=== PATIENT | female | born 1960 | race African-American/Black ===

== ENCOUNTER 2019-12-26 03:55 | Emergency (ER) | payer BC, MEDICAID ==
[~2019-12-26] VITALS: Ht 157.5 cm; Wt 122.5 kg
--- NOTE | 2019-12-26 04:03 | NUR ---
ED Nurse Note: pt brought in by ambulance from home c/o abdominal pain for several hours after eating dinner late and taking her evening medications. PT denies N/V/D, pt has been seen recently for similar symptoms. Pt is A&OX4, VSS, pt placed on sales data analyst, ERMD at bedside
--- NOTE | 2019-12-26 04:06 | Emergency Room Report ---
History of Present Illness General Chief Complaint: Abdominal Pain Source: Patient Present Illness HPI This is a 59-year-old female with a history of high blood pressure, diabetes and BMI of 49. She presents with 2 complaint of abdominal pain. Pain is epigastric area and radiating to her right upper quadrant into her back. Ongoing for the last 4 to 5 hours. Pain is sharp in nature. 9 out of 10. Has nausea and vomiting but no diarrhea. About a week and a half ago she was at [facility] diagnosed with kidney stone. She denies any hematuria. Nothing made it better. Palpation made it worse. 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 Patient History Past Medical History: see triage record, old chart reviewed, DM, HTN Past Surgical History: none Pertinent Family History: none Social History: Denies: smoking Now: No Immunizations: other Reviewed Nursing Documentation: PMH: Agreed; PSxH: Agreed Nursing Documentation-PMH Hx Hypertension: Yes Hx Diabetes: Yes Review of Systems Eye: Denies: eye pain, blurred vision ENT: Denies: ear pain, nose congestion, throat swelling Respiratory: Denies: cough, shortness of breath Cardiovascular: Denies: chest pain, palpitations Gastrointestinal: Reports: abdominal pain, nausea, vomiting; Denies: diarrhea Musculoskeletal: Denies: back pain, joint pain Skin: Denies: rash Neurological: Denies: headache, numbness Endocrine: Denies: increased thirst, increased urine Hematologic/Lymphatic: Denies: easy bruising All Other Systems: negative except mentioned in HPI Physical Exam Vital Signs Date Time Temp Pulse Resp B/P (MAP) Pulse Ox O2 Delivery O2 Flow Rate FiO2 12/26/19 03:51 98.6 86 16 168/81 (110) 98 Room Air Vitals with high blood pressure Sp02 EP Interpretation: reviewed, normal General Appearance: well appearing, no apparent distress, alert Head: normocephalic, atraumatic Eyes: bilateral eye PERRL, bilateral eye EOMI ENT: hearing grossly normal, normal pharynx Neck: full range of motion, supple, no meningismus Respiratory: chest non-tender, lungs clear, normal breath sounds Cardiovascular #1: regular rate, rhythm, no murmur Gastrointestinal: normal bowel sounds, no mass, no organomegaly, no bruit, non- distended, tenderness - Epigastric and right upper quadrant Musculoskeletal: back normal, normal range of motion, gait/station normal Psychiatric: mood/affect normal Medical Decision Making Diagnostic Impression: Primary Impression: Pancreatitis, acute Qualified Codes: K85.90 - Acute pancreatitis without necrosis or infection, unspecified Additional Impression: Abdominal pain Qualified Codes: R10.13 - Epigastric pain ER Course Patient presents with epigastric pain. She has a history of gastroparesis from diabetes. Lipase is elevated slightly but CT scans unremarkable. She has normal gallbladder. She has a lobulated soft tissue nodule in the right breast. She said this been ongoing for years and she get yearly mammogram to monitor it. CT/MRI/US Diagnostic Results CT/MRI/US Diagnostic Results : Imaging Test Ordered: CT abdomen pelvis Impression Read by radiologist. No acute findings in the abdomen or pelvis. Lobulated soft tissue nodule in the right breast. Last Vital Signs Date Time Temp Pulse Resp B/P (MAP) Pulse Ox O2 Delivery O2 Flow Rate FiO2 12/26/19 03:51 98.6 86 16 168/81 (110) 98 Room Air Status: improved Disposition: HOME, SELF-CARE Condition: Stable Scripts Omeprazole (OMEPRAZOLE) 40 Mg Capsule.dr 40 MG ORAL TWICE A DAY, #30 CAP Prov: Gabriel Salazar MD 12/26/19 Hydrocodone/Acetaminophen 5-325* (HYDROCODONE/ACETAMINOPHEN 5-325*) 1 Each Tablet 1 TAB ORAL Q6H PRN for For Pain, #30 TAB 0 Refills Prov: Gabriel Salazar MD 12/26/19 Patient Instructions: Abdominal Pain, Adult Additional Instructions: Follow-up with your doctor in 7 days. If symptoms continue, you may need referral to see a GI doctor for endoscopy. Return if symptoms worsen. Gabriel Salazar MD Dec 26, 2019 04:06
[2019-12-26] MEDS ORDERED: HYDROmorphone 1mg/ml Carpuject IVP ONE (04:15)
[2019-12-26 04:23] LABS: BASOPHILS % (AUTO) 0.9 % (0.0-2.0); EOSINOPHILS % (AUTO) 2.3 % (0.0-3.0); HEMATOCRIT 39.8 % (37.0-47.0); HEMOGLOBIN 13.4 G/DL (12.0-16.0); LYMPHOCYTES % (AUTO) 32.6 % (20.0-45.0); MEAN CORPUSCULAR VOLUME 94 FL (80-99); MONOCYTES % (AUTO) 5.6 % (1.0-10.0); NEUTROPHILS % (AUTO) 58.6 % (45.0-75.0); PLATELET COUNT 238 K/UL (150-450); RED BLOOD COUNT 4.24 M/UL (4.20-5.40); RED CELL DISTRIBUTION WIDTH 13.1 % (11.6-14.8); WHITE BLOOD COUNT 6.6 K/UL (4.8-10.8)
--- NOTE | 2019-12-26 04:25 | NUR ---
ED Nurse Note: Pt to CT
[2019-12-26 04:26] VITALS: BP 168/81
--- NOTE | 2019-12-26 04:35 | NUR ---
ED Nurse Note: Pt back from CT, tolerated well
[2019-12-26 04:38] LABS: CALCIUM 8.6 MG/DL (8.5-10.1); CREATININE 1.2 MG/DL (0.55-1.30); POTASSIUM 4.3 MMOL/L (3.5-5.1)
[2019-12-26 04:43] LABS: ALBUMIN 3.1 G/DL (3.4-5.0); ALBUMIN/GLOBULIN RATIO 0.9 (1.0-2.7); BILIRUBIN,TOTAL 0.4 MG/DL (0.2-1.0)
--- NOTE | 2019-12-26 05:14 | Diagnostic Imaging Report ---
EXAM: CT Abdomen and Pelvis Without Intravenous Contrast CLINICAL HISTORY: ABD PAIN TECHNIQUE: Axial computed tomography images of the abdomen and pelvis without intravenous contrast. CTDI is 14.50 mGy and DLP is 744.0 mGy-cm. One or more of the following dose reduction techniques were used: automated exposure control, adjustment of the mA and/or kV according to patient size, use of iterative reconstruction technique. COMPARISON: No relevant prior studies available. FINDINGS: Lung bases: Unremarkable. No mass. No consolidation. ABDOMEN: Liver: Unremarkable. Gallbladder and bile ducts: Unremarkable. No calcified stones. No ductal dilation. Pancreas: Unremarkable. No ductal dilation. Spleen: Unremarkable. No splenomegaly. Adrenals: There is a 1.7 x 1.2 cm left adrenal gland nodule which measures -4 Hounsfield units, compatible with a benign adenoma. No follow-up imaging is recommended. The right adrenal gland is unremarkable. Kidneys and ureters: Unremarkable. No obstructing stones. No hydronephrosis. Stomach and bowel: Unremarkable. No obstruction. No mucosal thickening. PELVIS: Appendix: Normal appendix. Bladder: Unremarkable. No stones. Reproductive: Unremarkable as visualized. ABDOMEN and PELVIS: Intraperitoneal space: Unremarkable. No free air. No significant fluid collection. Bones/joints: No acute fracture. No dislocation. Soft tissues: There is a 1.2 x 1.8 x 0.7 cm lobulated soft tissue nodule in the inferior posterior aspect of the right breast. This may represent a benign fibroadenoma but should be correlate with the patient's breast imaging. Vasculature: Unremarkable. No abdominal aortic aneurysm. Lymph nodes: Unremarkable. No enlarged lymph nodes. IMPRESSION: 1. No acute findings in the abdomen or pelvis. 2. Lobulated soft tissue nodule in the right breast, possibly a benign fibroadenoma but should be correlated with breast imaging.
[2019-12-26] MEDS ORDERED: OMEPRAZOLE40 M1 ORAL (05:25)
[2019-12-26] MEDS ORDERED: HYDROCODON-ACE1 EA15 ORAL (05:25)
[2019-12-26 05:45] VITALS: BP 154/75
--- NOTE | 2019-12-26 05:45 | NUR ---
ER DISCHARGE NOTE: Patient is cleared to be discharged per ERMD, pt is aox4, on room air, with stable vital signs. pt was given dc and prescription instructions, pt was able to verbalize understanding, pt id band and iv site removed without complications. pt is able to ambulate with steady gait. pt took all belongings.
[2019-12-26 06:01] LABS: APPEARANCE,URINE CLEAR; BILIRUBIN, URINE NEGATIVE (NEGATIVE); COLOR,URINE PALE YELLOW; GLUCOSE, URINE (UA) 1+ (NEGATIVE); KETONES,URINE NEGATIVE (NEGATIVE); LEUKOCYTE ESTERASE ,URINE NEGATIVE (NEGATIVE); NITRITE,URINE NEGATIVE (NEGATIVE); PH,URINE 5 (4.5-8.0); PROTEIN,URINE 2+ (NEGATIVE); UROBILINOGEN,URINE NORMAL MG/DL (0.0-1.0)
== END 2019-12-26 05:45 | disposition home or self-care (01) ==
LOC: EDBD 03:55 → EMR 04:30
DX: K85.90 Acute pancreatitis without necrosis or infection, unspecified (principal); I10 Essential (primary) hypertension; E11.9 Type 2 diabetes mellitus without complications
CPT/HCPCS: 36415; 74176; 80053; 81003; 83690; 85025; 96361; 96374; 96375; J1170; J2405; J7030; Z7502; 99284